=== PATIENT | female | born 1945 | race Two or more races ===

== ENCOUNTER 2022-03-02 05:42 | Day surgery (SDC) | payer OTHER | END 2022-03-02 11:10 | disposition home or self-care (01) | LOC: AMB-ENDOS 05:42 | PROVIDERS: ATTEND Surgery | DX: D12.7 Benign neoplasm of rectosigmoid junction (principal); E78.5 Hyperlipidemia, unspecified; K92.1 Melena; Z88.6 Allergy status to analgesic agent; Z88.8 Allergy status to other drugs, medicaments and biological substances ==